=== PATIENT | female | born 1990 | race Caucasian/White ===

== ENCOUNTER → 2023-07-16 | Outpatient (CLI) | payer OTHER ==
[2023-07-17 06:07] LABS: MUMPS VIRUS IGG ANTIBODY 43.3 AU/mL (Immune >10.9); RUBELLA AB IGG-REFLAB 3.73 index (Immune >0.99); RUBEOLA (MEASLES) IGG 37.2 AU/mL (Immune >16.4); VARICELLA ZOSTER IGG AB TITER <135 index (Immune >165)
== END | disposition home or self-care (01) ==
LOC: LABMN 12:13
PROVIDERS: ATTEND Internal Medicine
DX: Z02.1 Encounter for pre-employment examination (principal)
CPT/HCPCS: 86706; 86735; 86762; 86765; 86787